=== PATIENT | male | born 1995 | race Caucasian/White ===

== ENCOUNTER 2021-05-30 14:41 | Outpatient (CLI) | payer BC, SELFPAY ==
[2021-05-30 16:33] LABS: SARS-CoV-2 Ag Negative (Negative)
== END 2021-05-30 14:42 | disposition home or self-care (01) ==
LOC: CHSLAB 14:47
PROVIDERS: PCP Internal Medicine; Visit Provider Internal Medicine
DX: J06.9 Acute upper respiratory infection, unspecified (principal); Z20.822 Contact with and (suspected) exposure to COVID-19
CPT/HCPCS: 87426; C9803